=== PATIENT | male | born 1995 | race Two or more races ===

== ENCOUNTER 2025-02-20 21:03 | Emergency (ER) | payer MEDICAID, SELFPAY ==
[2025-02-20 21:04] VITALS: BMI 35.2
--- NOTE | 2025-02-20 21:27 | XR_ITS ---
Examination: Fingers, left hand 3 views second digit Technique: AP, oblique, lateral views left hand. Second digit Exam date and time: February 20, 2025 2144 hours INDICATIONS: Injury to the hand today, hand pain FINDINGS: No acute fracture No dislocation No foreign body IMPRESSION: No acute fracture
[2025-02-20 21:37] VITALS: BP 131/77; PULSE 89; RESP 18; TEMP 37.2; O2SAT 99
--- NOTE | 2025-02-20 22:09 | PD.EDRME ---
Rapid Medical Screening Exam [facility], LATER [facility] Arrival date/time: 02/20/25 21:03 29M with no significant PMH presents to ED with L index finger pain/lac after he accidentally smashed something on it. Patient has not had a tetanus shot in the past 5 years. Chief Complaint: Wound/Laceration Vital signs: Vital Signs Temperature 98.9 F 02/20/25 21:37 Pulse Rate 89 02/20/25 21:37 Respiratory Rate 18 02/20/25 21:37 Blood Pressure 131/77 H 02/20/25 21:37 Pulse Oximetry (%) 99 02/20/25 21:37 Oxygen Delivery Method Room Air 02/20/25 21:37
[2025-02-20] MEDS: DIPHTH,PERTUSS(ACELL),TET VAC 0.5 ML SYR- ADULT IMi (22:25)
--- NOTE | 2025-02-20 22:46 | EDNOTE_ITS ---
<Statement entered by Lisbeth Peck MD - 02/23/25 04:22> As co-signing physician, I was present and available for consult prn. I concur with the plan and care as documented by the midlevel provider. ED Wound/Laceration-RME/HPI General Chief Complaint: Wound/Laceration Stated Complaint: LEFT INDEX FINGER INJURY Time Seen by Provider: 02/20/25 22:22 Arrival date/time: 02/20/25 21:03 RME / HPI RME / HPI narrative: 29M with no significant PMH presents to ED with L index finger pain/lac after he accidentally smashed something on it. Patient has not had a tetanus shot in the past 5 years. Patient is able to bend and extend the finger without any limitation. Denies any other injury. Related Data Previous Rx's ?Medication ?Instructions ?Recorded ibuprofen 800 mg tablet 800 mg PO TID #30 tabs 07/11 hydrocodone 5 mg-acetaminophen 325 1 tab PO BID PRN pa in #10 tabs 07/12/23 mg tablet cephalexin 500 mg capsule 500 mg PO TID 7 days #21 cap s 02/20/25 ibuprofen 800 mg tablet 800 mg PO Q8H PRN pain #30 t abs 02/20/25 Allergies Allergy/AdvReac Type Severity Reaction Status Date / Time No Known Allergies Allergy Verified 02/20/25 21:04 Review of Systems Review of Systems Narrative Review of Systems: Review of system reviewed and within normal limits except mentioned in HPI ED Exam Narrative Physical exam: VITAL SIGNS: Reviewed. GENERAL APPEARANCE: Alert and interactive, follows commands, no acute distress, HEAD AND FACE: Non-traumatic. ENT: PERRL, pink conjunctivitis, eyelid no trauma, Mucous membrane moist. NECK: Supple, nontender, no nuchal rigidity. RECTAL: Deferred. GENITAL: Deferred. MUSCULOSKELETAL: low back nontender, full range of motion. EXTREMITIES: 2 cm laceration left index finger full range of motion of the finger with some dusky discoloration on the left side of the laceration, full range of motion. SKIN: Color pink, dry, no rash, no lacerations, no abrasions, no contusions. LYMPHATICS: Deferred. Course Quality Measures none Orders Category Date Time Status Set Up Suture Tray STAT Care 02/20/25 22:08 Active XR finger LT min 2V Stat Exams 02/20/25 21:27 Completed Ibuprofen Tab [Motrin Tab] Med 02/20/25 22:46 Once 800 mg PO X1 ONE TET,DIP/PERT AC (Adult)-Tdap [Boostrix Adult (Tdap) Med 02/20/25 22:08 Discontinued Vacc] 0.5 ml IMI .ONCE ONE cephALEXin [Keflex] Med 02/20/25 22:46 Once 500 mg PO X1 ONE Vital Signs Vital signs: Vital Signs Temperature 98.9 F 02/20/25 21:37 Pulse Rate 89 02/20/25 21:37 Respiratory Rate 18 02/20/25 21:37 Blood Pressure 131/77 H 02/20/25 21:37 Pulse Oximetry (%) 99 02/20/25 21:37 Oxygen Delivery Method Room Air 02/20/25 21:37 Procedures -ED Laceration Laceration 1: Site: other (Left index finger) Size (cm): 2 Description: flap Depth: simple, single layer Local Anesthetic: lidocaine 1% Amount of anesthesia used (mL): 5 Pre-repair: wound explored, irrigated extensively and deep structures intact Skin layer closed with: nylon Size (cm): 5-0 Number of sutures: 4 Technique: simple, interrupted Wound / Laceration [facility] Narrative [facility] Narrative:: 29M with no significant PMH presents to ED with L index finger pain/lac after he accidentally smashed something on it. Patient has not had a tetanus shot in the past 5 years. Patient is able to bend and extend the finger without any limitation. Denies any other injury. Repair and suturing was done by me see procedure note X-ray of the finger came back unremarkable no fracture or dislocation of the results discussed with the patient. Patient data External records reviewed:: None Clinical information provided by:: patient Social determinants that could affect healthcare access:: none Patient has the following chronic illnesses:: None How is presenting disease/condition affected by chronic disease/condition?: no chronic disease Evaluation data The following diagnostics were reviewed and interpreted by me:: radiology exam(s) Lab and/or radiology exams considered but not ordered:: None Interpretation Summary: See results in MDM Medications / Prescriptions Medications or Prescriptions considered but not ordered:: None Medication administrations:: Medication Administration History Discontinued Medications Diphtheria/Tetanus/Acell Pertussis (Diphth,Pertuss(Acell),Tet Vac 0.5 Ml Syr- Adult) 0.5 ml IMi .ONCE ONE Stop: 02/20/25 22:09 Last Admin: 02/20/25 22:25 Dose: 0.5 ml Documented By: LINDSAY Keflex Motrin and Boostrix Consultations Consultation(s) initiated? (list below): No Diagnosis Wound Differential Diagnosis: laceration, abrasion and avulsion of skin Most likely diagnosis given after review of the tests above:: Crush injury finger, finger laceration Admission Indicated Admission indicated?: not indicated Admission Request Was there a request for admission?: No Disposition Plan Disposition Plan: Discharge Discharge Attestation Discharge Attestation: Patient condition: Stable Discharge Plan Plan Patient Disposition: HOME (Self Care) Discharge Disposition comment: Stable Prescriptions/Referrals Prescriptions/Med Rec: New cephalexin 500 mg capsule 500 mg PO TID 7 Days Qty: 21 0RF ibuprofen 800 mg tablet 800 mg PO Q8H PRN (Reason: pain) Qty: 30 0RF No Action ibuprofen 800 mg tablet 800 mg PO TID Qty: 30 0RF hydrocodone-acetaminophen 5-325 mg tablet 1 tab PO BID MDD 10 PRN (Reason: pain) Qty: 10 0RF Referrals: No Primary/Family,Physician [Primary Care Provider] - In 1 week Problem List Clinical Impression: Finger laceration, Crush injury to finger Patient/Caregiver Discharge Instructions Discharge Activity: activity as tolerated Education Materials: ED Laceration: All Closures Additional Instructions: Thank you for the opportunity for serving you today. You are stable for discharged . You are advised to: Follow-up with your PCP in 1 to 2 days Return to ED for worsening of symptoms Increase oral fluids Take medication as prescribed Daily dressing with Neosporin as needed For removal of sutures in 10 days Discoloration of your finger might result due to trauma. Print Language: Estonian Stand Alone Forms: Kayla Award Info., Patient Portal Info Letter CITLALY/FERNANDO Supervising Physician CITLALY/FERNANDO Supervising Physician: MD Liv
[2025-02-20] MEDS: cephALEXin 250 MG CAPSULE 500 MG PO (22:57)
[2025-02-20] MEDS: IBUPROFEN TAB 400 MG TABLET 800 MG PO (22:57)
== END 2025-02-20 23:29 | disposition home or self-care (01) ==
PROVIDERS: Emergency Provider Emergency Medicine
DX: S61.211A Laceration without foreign body of left index finger without damage to nail, initial encounter (principal); W23.0XXA Caught, crushed, jammed, or pinched between moving objects, initial encounter; Z23 Encounter for immunization
CPT/HCPCS: 12001; 73140; 90471; 90715; 99283; A9270